=== PATIENT | male | born 1975 | race Caucasian/White ===

== ENCOUNTER 2024-04-17 10:21 | Observation (INO) ==
--- NOTE | 2024-04-17 10:27 | EKG ---
Test Reason : low blood pressure Blood Pressure : */* mmHG Vent. Rate : 73 BPM Atrial Rate : 73 BPM P-R Int : 138 ms QRS Dur : 74 ms QT Int : 392 ms P-R-T Axes : 49 33 63 degrees QTc Int : 431 ms Sinus rhythm with occasional premature ventricular complexes Otherwise normal ECG No previous ECGs available Confirmed by Bubba Crawley MD ([id number]) on 04/17/2024 2:49:43 PM Referred By: Confirmed By: Bubba Crawley MD
[2024-04-17 10:43] LABS: BASOPHILS # (AUTO) 0.1 X10^3/uL (0.0-0.1); BASOPHILS % (AUTO) 0.6 % (0.2-1.0); EOSINOPHILS # (AUTO) 0.1 x10^3/uL (0.0-0.2); HEMATOCRIT 45.8 % (42.0-54.0); HEMOGLOBIN 15.5 g/dL (13.5-18.0); LYMPHOCYTES # (AUTO) 2.6 X10^3/uL (1.3-2.9); LYMPHOCYTES % (AUTO) 26.6 % (21.0-51.0); MEAN CORPUSCULAR HEMOGLOBIN 31.1 pg (27.0-34.0); MEAN CORPUSCULAR HGB CONC 33.8 g/dL (33.0-35.0); MEAN CORPUSCULAR VOLUME 92.1 fL (80.0-100.0); MEAN PLATELET VOLUME 7.5 fL (7.4-11.0); MONOCYTES # (AUTO) 0.4 x10^3/uL (0.3-0.8); MONOCYTES % (AUTO) 4.3 % (0.0-13.0); NEUTROPHILS # (AUTO) 6.7 x10^3/uL (2.2-4.8); NEUTROPHILS % (AUTO) 67.5 % (42.0-75.0); PLATELET COUNT 305 X10^3/uL (150.0-450.0); RED BLOOD COUNT 4.97 X10^6/uL (4.7-6.0); RED CELL DISTRIBUTION WIDTH 13.3 % (11.6-16.5); WHITE BLOOD COUNT 9.9 X10^3/uL (3.6-10.0)
[2024-04-17 10:45] VITALS: BMI 34.0
[2024-04-17] MEDS: NS 1,000 ML IV 1,000 ML IV ONE (10:54)
[2024-04-17 11:02] LABS: ALANINE AMINOTRANSFERASE 46 Units/L (12-78); ALBUMIN 3.5 g/dL (3.4-5.0); ALKALINE PHOSPHATASE 88 Units/L (46-116); ASPARTATE AMINO TRANSFERASE 24 Units/L (15-37); BLOOD UREA NITROGEN 16 mg/dL (7-18); CARBON DIOXIDE 27.9 mmol/L (21-32); CHLORIDE 107 mmol/L (98-107); CREATINE KINASE 93 Units/L (39-308); CREATININE 1.33 mg/dL (0.70-1.30); GLUCOSE 97 mg/dL (65-99); POTASSIUM 4.4 mmol/L (3.5-5.1); SODIUM 141 mmol/L (136-145); TOTAL PROTEIN 7.1 g/dL (6.4-8.2); eGFR NON BLACK RACES > 60 (>60)
--- NOTE | 2024-04-17 11:12 | CT ---
EXAM:CT HEAD WITH CONTRASTHISTORY:SYNCOPE HIT HEAD; .COMPARISON:None.TECHNIQUE:Axial CT images were obtained through the brain after the intravenous administration of 75cc Isovue 370.Informed written consent was obtained from the patient prior to contrast administration.All CT scans at this facility use dose modulation, iterative reconstruction, and/or weight based dosing when appropriate to reduce radiation dose to as low as reasonably achievable.FINDINGS:BRAIN: No evidence of acute infarct intra or extraaxial hemorrhage mass effect or hydrocephalus. No abnormal enhancement identified after contrast administration.SKULL: NormalADDITIONAL FINDINGS: NoneIMPRESSION:No evidence of acute intracranial processTHIS IS AN ELECTRONICALLY VERIFIED FINAL REPORT04/17/2024 11:08 AM - Electronically signed by Dayo Pradhan MD
--- NOTE | 2024-04-17 11:41 | RAD ---
EXAM:CHEST, 1 VIEWHISTORY:Syncope;COMPARISON:None. .br.br.br unremarkable. The lungs are clear without focal infiltrate or effusion. The bony thorax is unremarkable.IMPRESSION:No acute cardiopulmonary disease.THIS IS AN ELECTRONICALLY VERIFIED FINAL REPORT04/17/2024 11:38 AM - Electronically signed by Donald Bernard MD
--- NOTE | 2024-04-17 12:31 | DR.DIZZY ---
HPI Time seen Time Seen by Provider: 04/17/24 10:25 Complaint Chief Complaint Doctor Comments: 48 yo M, no cardiac hx, currently encarcerated, had multiple syncopal episodes. Initially, pt thought he had near-sync. However, on further questioning, pt admits that he does not recall hitting his face, or breaking the vase that was on the table. Woke on the ground with workers from the [facility] around him. Currently denies other complaints. Denies any type of chest pain, dyspnea or palpitations. Chief Complaint:: pt states that he was preparing some coffee this morning and got dizzy and fell. He got back up and fell again. He said he doesn't recall becoming unconscious and does recall both falls. Pt does have a small cut to his cheek COVID-19 Coronavirus risk:travel/contact w/high risk person: No Has patient experienced Coronavirus symptoms: No Source History Provided: Patient Mode of Arrival Mode of Arrival: Stretcher Timing Onset of Chief Complaint: 04/17/24 Context Stroke Symptoms: None PMH PMH Past Medical History: Yes Past Medical History: Hypertension Past Surgical History: Yes Surgical History: Appendectomy Family History History of Family Medical Conditions: Yes Family Medical History: Diabetes Mellitus and Cancer Social History Does patient currently use any type of tobacco product: Yes Have you used tobacco products in the last 12 months: Yes Type of Tobacco Use: Cigarettes Alcohol Use: None Do you use any recreational Drugs:: No Lives Where: Home Travel Risk Coronavirus risk:travel/contact w/high risk person: No Has patient experienced Coronavirus symptoms: No Infectious screening Have you traveled outside the country in the last 6 months?: No Isolation: Standard ROS Review of Systems Constitutional: Other (Syncope x 3) All Other Systems: Reviewed and Negative PE Vital Signs Vitals: Vital Signs Temperature 97.9 F Pulse Rate 66 Pulse Rate 63 Pulse Rate 63 Pulse Rate 68 Pulse Rate 67 Pulse Rate 67 Pulse Rate 66 Pulse Rate 64 Pulse Rate 79 Pulse Rate 65 Pulse Rate 64 Pulse Rate 70 Pulse Rate 70 Respiratory Rate 13 Respiratory Rate 15 Respiratory Rate 14 Respiratory Rate 16 Respiratory Rate 14 Respiratory Rate 14 Respiratory Rate 12 Respiratory Rate 12 Respiratory Rate 18 Respiratory Rate 14 Respiratory Rate 9 Respiratory Rate 13 Respiratory Rate 18 Blood Pressure 113/71 Blood Pressure 105/62 Blood Pressure 105/66 Blood Pressure 104/66 Blood Pressure 102/63 Blood Pressure 95/59 Blood Pressure 79/61 O2 Sat by Pulse Oximetry 100 O2 Sat by Pulse Oximetry 100 O2 Sat by Pulse Oximetry 100 O2 Sat by Pulse Oximetry 100 O2 Sat by Pulse Oximetry 99 O2 Sat by Pulse Oximetry 99 O2 Sat by Pulse Oximetry 100 O2 Sat by Pulse Oximetry 100 O2 Sat by Pulse Oximetry 96 O2 Sat by Pulse Oximetry 99 O2 Sat by Pulse Oximetry 100 O2 Sat by Pulse Oximetry 100 O2 Sat by Pulse Oximetry 97 General Limitations: No Limitations General Appearance: Alert and In No Apparent Distress Head Head Exam: Normal Inspection (small abrasion on L cheek, ~1x3 cm) Eyes Eye exam: Normal Appearance ENT ENT Exam: Normal Exam, Normal Oropharynx and Normal External Ear Exam Neck Neck Exam: Normal Inspection and Full ROM Chest Chest Inspection: Normal Inspection Respiratory Respiratory Exam: Normal Lung Sounds Bilat Cardiovascular Cardiovascular Exam: Regular Rate and Normal Rhythm Abdominal Exam Abdominal Exam: Normal Inspection, Normal Bowel Sounds and Soft Rectal Rectal Exam: Deferred Extremeties Extremities Exam: Normal Inspection and Full ROM Back Back Exam: Normal Inspection and Full ROM Neurologic Neurological Exam: Alert and Oriented X3 Psychiatric Psychiatric Exam: Normal Affect and Normal Mood Skin Skin Exam: Warm, Dry, Intact and Normal Color ROR Labs Reviewed Laboratory Results Reviewed?: Yes 04/17/24 10:38 04/17/24 10:38 Laboratory: WBC 9.9 X10^3/uL (3.6-10.0) 04/17/24 10:38 RBC 4.97 X10^6/uL (4.7-6.0) 04/17/24 10:38 Hgb 15.5 g/dL (13.5-18.0) 04/17/24 10:38 Hct 45.8 % (42.0-54.0) 04/17/24 10:38 MCV 92.1 fL (80.0-100.0) 04/17/24 10:38 MCH 31.1 pg (27.0-34.0) 04/17/24 10:38 MCHC 33.8 g/dL (33.0-35.0) 04/17/24 10:38 RDW 13.3 % (11.6-16.5) 04/17/24 10:38 Plt Count 305 X10^3/uL (150.0-450.0) 04/17/24 10:38 MPV 7.5 fL (7.4-11.0) 04/17/24 10:38 Neut % (Auto) 67.5 % (42.0-75.0) 04/17/24 10:38 Lymph % (Auto) 26.6 % (21.0-51.0) 04/17/24 10:38 Coal % (Auto) 4.3 % (0.0-13.0) 04/17/24 10:38 Eos % (Auto) 1.0 % (0.9-2.9) 04/17/24 10:38 Baso % (Auto) 0.6 % (0.2-1.0) 04/17/24 10:38 Neut # (Auto) 6.7 x10^3/uL (2.2-4.8) H 04/17/24 10:38 Lymph # (Auto) 2.6 X10^3/uL (1.3-2.9) 04/17/24 10:38 Coal # (Auto) 0.4 x10^3/uL (0.3-0.8) 04/17/24 10:38 Eos # (Auto) 0.1 x10^3/uL (0.0-0.2) 04/17/24 10:38 Baso # (Auto) 0.1 X10^3/uL (0.0-0.1) 04/17/24 10:38 Absolute Nucleated RBC 0.1 /100WBC 04/17/24 10:38 Sodium 141 mmol/L (136-145) 04/17/24 10:38 Corrected Sodium TNP 04/17/24 10:38 Potassium 4.4 mmol/L (3.5-5.1) 04/17/24 10:38 Chloride 107 mmol/L (98-107) 04/17/24 10:38 Carbon Dioxide 27.9 mmol/L (21-32) 04/17/24 10:38 BUN 16 mg/dL (7-18) 04/17/24 10:38 Creatinine 1.33 mg/dL (0.70-1.30) H 04/17/24 10:38 Est GFR (MDRD) Af Amer > 60 (>60) 04/17/24 10:38 Est GFR (MDRD) Non-Af > 60 (>60) 04/17/24 10:38 Glucose 97 mg/dL (65-99) 04/17/24 10:38 Calcium 8.0 mg/dL (8.5-10.1) L 04/17/24 10:38 Corrected Calcium TNP 04/17/24 10:38 Total Bilirubin 0.50 mg/dL (0.2-1.0) 04/17/24 10:38 AST 24 Units/L (15-37) 04/17/24 10:38 ALT 46 Units/L (12-78) 04/17/24 10:38 Alkaline Phosphatase 88 Units/L (46-116) 04/17/24 10:38 Creatine Kinase 93 Units/L (39-308) 04/17/24 10:38 Troponin I High Sens < 4.0 ng/L (4.0-60.0) L 04/17/24 10:38 Total Protein 7.1 g/dL (6.4-8.2) 04/17/24 10:38 Albumin 3.5 g/dL (3.4-5.0) 04/17/24 10:38 Globulin 3.6 g/dL (2.5-4.5) 04/17/24 10:38 Albumin/Globulin Ratio 1.0 Ratio (1.1-2.1) L 04/17/24 10:38 Opioid Opioid Risk Tool Age (Chuy box if 16-45): No History of Preadolescent Sexual Abuse: No Total: 0 Total Score Risk Category: Low Risk Copyright: Yevgeniy JIMENES predicting aberrant behaviors Discharge Plan Diagnosis Discharge Problem: Syncope and collapse Hospital Course Hospital Course: Spoke with Dr Dillard who agrees to admit. Discharge Plan Condition: Stable Prescriptions: No Action lisinopril 10 mg Tablet 10 mg PO DAILY Health Concerns: Post Hospitalization: new medications and changes needed to prevent readmission or further decline. Pt educated and given instructions on all concerns. Plan of Treatment: Continue with present treatment and follow up plan. Pt is to keep follow up appointment as instructed and take medications as ordered. Orders to Discharge Patient Discharge Orders: Transfer (Routine); Ordered 04/17/24 Ordered By: Shamir Douglass Follow ups/Referrals Follow ups/Referrals: [facility],None [Primary Care Provider] - 3 days Instructions Stand Alone Forms: Find Help Web Site, Post Hospital Follow Up Care
[2024-04-17] MEDS: NS 1,000 ML IV 1,000 ML IV SCH (14:37)
--- NOTE | 2024-04-17 14:54 | EKG ---
Test Reason : Syncope Blood Pressure : */* mmHG Vent. Rate : 62 BPM Atrial Rate : 62 BPM P-R Int : 152 ms QRS Dur : 70 ms QT Int : 410 ms P-R-T Axes : 50 40 65 degrees QTc Int : 416 ms Sinus rhythm with occasional premature ventricular complexes Otherwise normal ECG When compared with ECG of 17-APR-2024 10:24, No significant change was found Confirmed by Bubba Crawley MD ([id number]) on 04/17/2024 3:33:59 PM Referred By: Confirmed By: Bubba Crawley MD
--- NOTE | 2024-04-17 20:23 | EKG ---
Test Reason : Syncope Blood Pressure : */* mmHG Vent. Rate : 67 BPM Atrial Rate : 67 BPM P-R Int : 156 ms QRS Dur : 72 ms QT Int : 404 ms P-R-T Axes : 51 32 65 degrees QTc Int : 426 ms Normal sinus rhythm Normal ECG When compared with ECG of 17-APR-2024 14:32, premature ventricular complexes are no longer present Confirmed by Bubba Crawley MD ([id number]) on 04/18/2024 7:38:10 AM Referred By: Confirmed By: Bubba Crawley MD
--- NOTE | 2024-04-18 03:02 | EKG ---
Test Reason : Syncope Blood Pressure : */* mmHG Vent. Rate : 66 BPM Atrial Rate : 66 BPM P-R Int : 160 ms QRS Dur : 72 ms QT Int : 404 ms P-R-T Axes : 51 28 61 degrees QTc Int : 423 ms Normal sinus rhythm Normal ECG When compared with ECG of 17-APR-2024 20:06, (Unconfirmed) No significant change was found Confirmed by Bubba Crawley MD ([id number]) on 04/18/2024 7:36:38 AM Referred By: Confirmed By: Bubba Crawley MD
[2024-04-18 03:06] LABS: BASOPHILS # (AUTO) 0.1 X10^3/uL (0.0-0.1); BASOPHILS % (AUTO) 0.6 % (0.2-1.0); EOSINOPHILS # (AUTO) 0.1 x10^3/uL (0.0-0.2); EOSINOPHILS % (AUTO) 1.2 % (0.9-2.9); HEMATOCRIT 41.7 % (42.0-54.0); LYMPHOCYTES # (AUTO) 2.7 X10^3/uL (1.3-2.9); LYMPHOCYTES % (AUTO) 28.7 % (21.0-51.0); MEAN CORPUSCULAR HEMOGLOBIN 30.8 pg (27.0-34.0); MEAN CORPUSCULAR HGB CONC 33.7 g/dL (33.0-35.0); MEAN CORPUSCULAR VOLUME 91.4 fL (80.0-100.0); MONOCYTES # (AUTO) 0.6 x10^3/uL (0.3-0.8); MONOCYTES % (AUTO) 6.2 % (0.0-13.0); NEUTROPHILS % (AUTO) 63.3 % (42.0-75.0); PLATELET COUNT 271 X10^3/uL (150.0-450.0); RED BLOOD COUNT 4.56 X10^6/uL (4.7-6.0); RED CELL DISTRIBUTION WIDTH 13.5 % (11.6-16.5); WHITE BLOOD COUNT 9.5 X10^3/uL (3.6-10.0)
[2024-04-18 03:10] LABS: INR 1.03 (0.8-1.3)
[2024-04-18 03:31] LABS: ALANINE AMINOTRANSFERASE 39 Units/L (12-78); ALBUMIN 2.9 g/dL (3.4-5.0); ALKALINE PHOSPHATASE 79 Units/L (46-116); ASPARTATE AMINO TRANSFERASE 21 Units/L (15-37); BLOOD UREA NITROGEN 14 mg/dL (7-18); CALCIUM 7.7 mg/dL (8.5-10.1); CARBON DIOXIDE 24.7 mmol/L (21-32); CHLORIDE 109 mmol/L (98-107); CHOL/HDL RATIO 4.2 (0.0-5.0); CHOLESTEROL 172 mg/dL (0-200); COR CA(FOR HYPOALB) 8.6 mg/dL (8.5-10.1); CREATININE 0.96 mg/dL (0.70-1.30); GLUCOSE 94 mg/dL (65-99); HDL CHOLESTEROL 41 mg/dL (40-60); MAGNESIUM 1.7 mg/dL (2.0-2.9); POTASSIUM 4.1 mmol/L (3.5-5.1); SODIUM 141 mmol/L (136-145); TOTAL PROTEIN 6.2 g/dL (6.4-8.2); TRIGLYCERIDES 62 mg/dL (0-150); eGFR NON BLACK RACES > 60 (>60)
[2024-04-18] MEDS ORDERED: CONSULT PHARMACY - POTASSIUM & MAGNESIUM XX SCH (04:00)
--- NOTE | 2024-04-18 05:49 | RAD ---
EXAM:CHEST, 1 VIEWHISTORY:SYNCOPE; HTN, APPYCOMPARISON:04/17/2024FINDINGS:The cardiomediastinal silhouette is stable.No acute airspace disease. No pneumothorax or effusion.No acute osseous abnormality.IMPRESSION:No acute cardiopulmonary disease.THIS IS AN ELECTRONICALLY VERIFIED FINAL REPORT04/18/2024 5:46 AM - Electronically signed by Franki Michael MD
[2024-04-18] MEDS: MAG-OX TAB PO SCH (09:17)
[2024-04-18 14:34] LABS: BILIRUBIN,URINE NEGATIVE (NEGATIVE); BLOOD/HEMOGLOBIN,URINE NEGATIVE (NEGATIVE); GLUCOSE, URINE NEGATIVE (NEGATIVE); KETONES,URINE NEGATIVE (NEGATIVE); LEUKOCYTE ESTERASE ,URINE NEGATIVE (NEGATIVE); NITRITES,URINE NEGATIVE (NEGATIVE); PROTEIN,URINE NEGATIVE (NEGATIVE); UROBILINOGEN,URINE NORMAL (NORMAL)
[2024-04-18 14:36] LABS: APPEARANCE,URINE CLEAR (CLEAR); COLOR,URINE YELLOW (YELLOW)
[2024-04-18] MEDS: ZESTRIL TAB 10 MG PO SCH (21:07)
[2024-04-18 23:49] VITALS: RESP 20
[2024-04-19 05:49] LABS: BASOPHILS # (AUTO) 0.1 X10^3/uL (0.0-0.1); BASOPHILS % (AUTO) 0.6 % (0.2-1.0); EOSINOPHILS # (AUTO) 0.1 x10^3/uL (0.0-0.2); EOSINOPHILS % (AUTO) 0.9 % (0.9-2.9); HEMATOCRIT 44.9 % (42.0-54.0); HEMOGLOBIN 15.1 g/dL (13.5-18.0); LYMPHOCYTES # (AUTO) 2.2 X10^3/uL (1.3-2.9); LYMPHOCYTES % (AUTO) 21.5 % (21.0-51.0); MEAN CORPUSCULAR HEMOGLOBIN 30.6 pg (27.0-34.0); MEAN CORPUSCULAR HGB CONC 33.7 g/dL (33.0-35.0); MEAN CORPUSCULAR VOLUME 90.9 fL (80.0-100.0); MEAN PLATELET VOLUME 7.8 fL (7.4-11.0); MONOCYTES # (AUTO) 0.7 x10^3/uL (0.3-0.8); MONOCYTES % (AUTO) 6.3 % (0.0-13.0); NEUTROPHILS # (AUTO) 7.4 x10^3/uL (2.2-4.8); NEUTROPHILS % (AUTO) 70.7 % (42.0-75.0); PLATELET COUNT 306 X10^3/uL (150.0-450.0); RED BLOOD COUNT 4.94 X10^6/uL (4.7-6.0); RED CELL DISTRIBUTION WIDTH 13.2 % (11.6-16.5); WHITE BLOOD COUNT 10.4 X10^3/uL (3.6-10.0)
[2024-04-19 06:01] LABS: ALANINE AMINOTRANSFERASE 37 Units/L (12-78); ALBUMIN 3.5 g/dL (3.4-5.0); ALKALINE PHOSPHATASE 96 Units/L (46-116); ASPARTATE AMINO TRANSFERASE 17 Units/L (15-37); BLOOD UREA NITROGEN 10 mg/dL (7-18); CHLORIDE 105 mmol/L (98-107); CREATININE 0.93 mg/dL (0.70-1.30); GLUCOSE 94 mg/dL (65-99); MAGNESIUM 1.9 mg/dL (2.0-2.9); POTASSIUM 3.9 mmol/L (3.5-5.1); SODIUM 138 mmol/L (136-145); TOTAL PROTEIN 7.2 g/dL (6.4-8.2); eGFR NON BLACK RACES > 60 (>60)
[2024-04-19 06:06] LABS: CALCIUM 8.1 mg/dL (8.5-10.1)
[2024-04-19 12:05] VITALS: BP 137/85; PULSE 80; TEMP 98.1; O2SAT 97
== END 2024-04-19 17:00 | disposition home or self-care (01) ==
LOC: ER 10:21 → MED/SURG 10:21
PROVIDERS: ADMIT Internal Medicine; ATTEND Internal Medicine
DX: E83.42 Hypomagnesemia; I10 Essential (primary) hypertension; R42 Dizziness and giddiness; I95.89 Other hypotension; R55 Syncope and collapse; W18.39XA Other fall on same level, initial encounter